=== PATIENT | male | born 1955 | race Caucasian/White ===

== ENCOUNTER 2024-08-07 09:03 | Emergency (ER) | payer MEDICARE, OTHER ==
[~2024-08-07] VITALS: Ht 180.3 cm; Wt 77.3 kg
[2024-08-07 09:05] VITALS: TEMP 98.3
[2024-08-07] MEDS: fentaNYL/PF 50MCG/1 ML 2ML syringe IV ONE (09:33)
[2024-08-07 09:42] LABS: BASOPHILS # (AUTO) 0.1 X10'3 (0-0.2); EOSINOPHILS # (AUTO) 0.2 X10'3 (0-0.9); EOSINOPHILS % (AUTO) 1.9 % (0-6); LYMPHOCYTES # (AUTO) 0.9 X10'3 (1.1-4.8); LYMPHOCYTES % (AUTO) 11.6 % (21-51); MEAN CORPUSCULAR HEMOGLOBIN 29.3 PG (27.0-31.0); MEAN CORPUSCULAR HGB CONC 33.3 g/dL (33.0-36.5); MEAN CORPUSCULAR VOLUME 88.1 FL (78-98); MONOCYTES # (AUTO) 0.9 X10'3 (0-0.9); MONOCYTES % (AUTO) 10.9 % (2-12); NEUTROPHILS % (AUTO) 74.6 % (42-75); PLATELET COUNT 247 X10'3 (140-440); RED BLOOD COUNT 3.75 X10'6 (4.70-6.10); RED CELL DISTRIBUTION WIDTH 16.9 % (11.5-14.5)
[2024-08-07 09:53] LABS: PROTHROMBIN TIME 10.6 SECONDS (9.0-12.0)
[2024-08-07] MEDS: morphine 4 MG/ML inj SYRINge IV ONE ×2 (09:54→13:52)
[2024-08-07] MEDS: ondansetron/PF 4mg/2ml inj IV ONE (09:54)
[2024-08-07 09:58] LABS: ALANINE AMINOTRANSFERASE 22 U/L (12-78); ALBUMIN 3.1 G/DL (3.4-5.0); ALBUMIN/GLOBULIN RATIO 0.8 (1.1-1.5); ALKALINE PHOSPHATASE 116 IU/L (46-116); ANION GAP 5 (8-16); ASPARTATE AMINO TRANSFERASE 18 U/L (10-37); BILIRUBIN,TOTAL 0.5 MG/DL (0.1-1.0); BLOOD UREA NITROGEN 52 MG/DL (7-18); BUN/CREATININE RATIO 40.3 (10.0-20.0); CALCIUM 8.6 MG/DL (8.5-10.1); CHLORIDE 103 MMOL/L (99-107); CREATININE 1.29 MG/DL (0.60-1.10); GLUCOSE 185 MG/DL (70-104); POTASSIUM 4.5 MMOL/L (3.5-5.1); SODIUM 136 MMOL/L (135-145); TOTAL CARBON DIOXIDE 27.9 MMOL/L (24-32); eCRCL 59 ML/MIN; eGFR 56 ML/MIN
[2024-08-07] MEDS ORDERED: METF-438 PO (11:41)
[2024-08-07] MEDS ORDERED: ONDA-243 PO (11:41)
[2024-08-07] MEDS ORDERED: TAMS-55 PO (11:41)
[2024-08-07] MEDS ORDERED: PANT40TA54 PO (11:41)
[2024-08-07] MEDS ORDERED: HYDR50TA46 PO (11:41)
[2024-08-07] MEDS ORDERED: KEP500T PO (11:41)
[2024-08-07] MEDS ORDERED: NALO12.52 PO (11:41)
[2024-08-07] MEDS ORDERED: METO-395 PO (11:41)
[2024-08-07] MEDS ORDERED: GABA-530 PO (11:41)
[2024-08-07] MEDS ORDERED: RIVA10TA PO (11:41)
[2024-08-07] MEDS ORDERED: RISP0.5T80 PO (11:41)
[2024-08-07] MEDS ORDERED: EMPA25TA PO (11:41)
[2024-08-07 16:03] VITALS: BP 121/79; PULSE 90; O2SAT 94
[2024-08-07 16:51] VITALS: RESP 16
[2024-08-07] MEDS: morphine 4 MG/ML inj SYRINge IV STA (16:51)
== END 2024-08-07 18:55 | disposition hospice, inpatient (51) ==
LOC: ER 09:04
DX: S32.89XA Fracture of other parts of pelvis, initial encounter for closed fracture (principal); Z79.899 Other long term (current) drug therapy; Z79.84 Long term (current) use of oral hypoglycemic drugs; W01.0XXA Fall on same level from slipping, tripping and stumbling without subsequent striking against object, initial encounter; Y93.89 Activity, other specified; Y92.89 Other specified places as the place of occurrence of the external cause; Y99.8 Other external cause status
CPT/HCPCS: 36415; 72192; 73502; 80053; 85025; 85610; 96374; 96375; 96376; 99285; A6590; J2270; J2405; J3010; J7030